=== PATIENT | female | born 1935 | race Caucasian/White ===

== ENCOUNTER 2017-06-25 04:59 | Inpatient (IN) | payer OTHER, BC ==
[2017-06-22 12:45] VITALS: BMI 32.0
--- NOTE | 2017-06-22 13:17 | PAT Medication Instructions ---
Service Date Jun 22, 2017. Current Home Medication List Albuterol Sulfate (Proventil Hfa), 1 PUFF INH QID PRN for Shortness of Breath Aspirin (Aspirin Ec), 81 MG PO QAM Carvedilol (Coreg), 3.125 MG PO BID Esomeprazole Magnesium (Nexium), 40 MG PO QAM Ferrous Sulfate (Kp Ferrous Sulfate), 1 TAB PO BID PRN for PRN Fluticasone Prop/Salmeterol (Advair Diskus 250/50 60 Dose), 1 PUFF INH BID Furosemide (Lasix), 40 MG PO QAM Isosorbide Mononitrate (Isosorbide Mononitrate ER), 30 MG PEG QAM Levothyroxine Sodium (Levothyroxine Sodium), 1 TAB PO QAM Montelukast Sodium (Singulair), 10 MG PO QAM Nitroglycerin (Nitrostat), 0.4 MG UT PRN Omeprazole (Prilosec), 20 MG PO QAM Potassium Ext Rel (Klor-Con), 20 MEQ PO QAM Simvastatin (Zocor), 10 MG PO QPM Medication Instructions For Your Scheduled Surgery - Continue as directed: Nitroglycerin (Nitrostat), 0.4 MG UT PRN - Hold the following medications the morning of surgery: Furosemide (Lasix), 40 MG PO QAM Potassium Ext Rel (Klor-Con), 20 MEQ PO QAM Ferrous Sulfate (Kp Ferrous Sulfate), 1 TAB PO BID PRN for PRN - Take the following medications the morning of surgery with a sip of water: Albuterol Sulfate (Proventil Hfa), 1 PUFF INH QID PRN for Shortness of Breath ( Bring with you to the hospital the morning of the surgery) Levothyroxine Sodium (Levothyroxine Sodium), 1 TAB PO QAM Montelukast Sodium (Singulair), 10 MG PO QAM Omeprazole (Prilosec), 20 MG PO QAM Isosorbide Mononitrate (Isosorbide Mononitrate ER), 30 MG PEG QAM Carvedilol (Coreg), 3.125 MG PO BID Aspirin (Aspirin Ec), 81 MG PO QAM Fluticasone Prop/Salmeterol (Advair Diskus 250/50 60 Dose), 1 PUFF INH BID Esomeprazole Magnesium (Nexium), 40 MG PO QAM - Take the following medications as scheduled the night before surgery: Simvastatin (Zocor), 10 MG PO QPM Carvedilol (Coreg), 3.125 MG PO BID Fluticasone Prop/Salmeterol (Advair Diskus 250/50 60 Dose), 1 PUFF INH BID If you have any questions please call us at [phone] or [phone] or [phone]
--- NOTE | 2017-06-22 14:10 | DIAGNOSTIC IMAGING REPORT ---
CHEST 2 VIEWS ROUTINE CLINICAL HISTORY: Preoperative chest COMPARISON STUDY: 02/09/2014 FINDINGS: The cardiac and sternal contours remain stable. There is no focal pulmonary consolidation. There is no failure. There are no pleural effusions. There are postsurgical changes of a lumbar spinal fusion.[ IMPRESSION: No active disease in the chest. Electronically signed by: Curt Soares M.D. 06/22/2017 2:09 PM Dictated Date/Time: 06/22/2017 2:08 PM
[2017-06-22 14:14] LABS: BASO % 0.1 %; BASO ABS # 0.01 K/uL (0-0.2); COMPLETE YES; EOS % 4.1 %; HEMATOCRIT 35.9 % (37-47); IG% 1.1 %; LYMPH % 12.3 %; LYMPH ABS # 1.15 K/uL (1.2-3.4); MEAN CELL VOLUME 78.6 fL (80-100); MEAN CORPUSCULAR HEMOGLOBIN 24.3 pg (25-34); MEAN CORPUSCULAR HGB CONC 30.9 g/dl (32-36); MEAN PLATELET VOLUME 10.2 fL (7.4-10.4); MONO % 10.5 %; NEUT % 71.9 %; PLATELET COUNT 178 K/uL (130-400); RED BLOOD COUNT 4.57 M/uL (4.2-5.4); WHITE BLOOD COUNT 9.37 K/uL (4.8-10.8)
[2017-06-22 14:15] LABS: ESTIMATED AVERAGE GLUCOSE 123 mg/dl; HA1C FLAG Normal (Normal)
[2017-06-22 14:22] LABS: URINE APPEARANCE CLEAR (CLEAR); URINE BILIRUBIN NEG (NEG); URINE COLOR YELLOW; URINE NITRITE POS (NEG); URINE PH 5.5 (4.5-7.5); URINE SPECIFIC GRAVITY 1.015 (1.000-1.030); UROBILINOGEN NEG (NEG); ZZUR CULT IF INDIC CLEAN CATCH YES
[2017-06-22 14:24] LABS: INR 1.1 (0.9-1.1); PROTHROMBIN TIME (PATIENT) 11.8 SECONDS (9.0-12.0)
[2017-06-22 14:25] LABS: MANUAL MICROSCOPIC REQUIRED? NO; REVIEW REQ? NO
[2017-06-22 14:48] LABS: BUN/CREATININE RATIO 13.8 (10-20); CALCIUM 8.9 mg/dl (8.5-10.1); CREATININE 1.4 mg/dl (0.60-1.20); POTASSIUM 3.4 mmol/L (3.5-5.1)
--- NOTE | 2017-06-24 18:15 | HISTORY & PHYSICAL EXAMINATION ---
DATE OF ADMISSION: 06/24/2017 CHIEF COMPLAINT: Chronic left hip pain. HISTORY OF PRESENT ILLNESS: This is an 82-year-old female patient of Dr. Lewis'alex complaining of chronic left hip pain, longstanding, now progressively getting worse. The patient has been diagnosed with end-stage osteoarthritis per clinical and radiographic exams. The patient has failed conservative treatment including anti-inflammatories, narcotic medications and the use of a cane. The patient has increased pain with weightbearing activities and her pain does interfere with her activities of daily living. PAST MEDICAL HISTORY: Angina, hypercholesterolemia, asthma, hypothyroidism, rheumatoid arthritis, osteoarthritis, spine problems, sciatica, and obesity. SOCIAL HISTORY: Nonsmoker, nondrinker. FAMILY HISTORY: Noncontributory. REVIEW OF SYSTEMS: The patient complains of chronic left hip pain. Otherwise, denies any shortness of breath, chest pain, nausea, vomiting or any other joint complaints. MEDICATIONS: Include: 1. Isosorbide 30 mg as needed daily. 2. Nexium 40 mg daily. 3. Klor-Con 20 mEq daily. 4. Carvedilol 3.125 mg 1 twice daily. 5. Furosemide 40 mg daily. 6. Singulair 10 mg daily. 7. Synthroid 100 mcg daily. 8. Simvastatin 10 mg at bedtime. 9. Aspirin 81 mg daily. 10. Proventil 2 puffs as needed daily. 11. Cipro twice daily for urinary tract infection. 12. Advair Diskus 250/50 one puff b.i.d. 13. Fish oil daily and calcium daily. ALLERGIES: SULFA. PHYSICAL EXAMINATION: GENERAL: Well-developed, well-nourished female who is alert and oriented x3 and pleasant. HEENT: Normocephalic, atraumatic. Extraocular motions are intact and pupils reactive to light. HEART: Regular rate and rhythm, no murmurs appreciated. LUNGS: Clear. ABDOMEN: Soft and nontender, bowel sounds are present. EXTREMITIES: Left hip reveals no real hip flexure contraction. She does have pain with passive range of motion, internal and external rotation, and log rolling. She has 4/5 strength in her hip with pain. NEUROLOGIC: Neurovascularly, she is intact in her left lower extremity. DIAGNOSES: Left hip end-stage osteoarthritis with a history of angina, hypercholesterolemia, asthma, hypothyroidism, osteoarthritis, rheumatoid arthritis, spine problems, sciatica, and obesity. PLAN: The patient was advised of her diagnoses. Indications, risks, benefits, and postop course have all been reviewed. The patient wishes to proceed with a left total hip arthroplasty. Necessary consent forms, preoperative testing and clearances will be obtained.
[~2017-06-25] VITALS: Ht 154.9 cm; Wt 80.4 kg
[2017-06-25] VITALS (11 sets, daily range): BP systolic 101–161; BP diastolic 59–79; PULSE 66–76; TEMP 36.4–36.8; O2SAT 97–100; Ht 154.9 cm; Wt 80.4 kg
[~2017-06-25 04:59] MED LIST: ADVIN25/60 INH; ALBUAER INH; ASPI81TA28 PO; CARV3.12 PO; FERR1TAB13 PO; ISOS-11 PEG; LEVO100T7 PO; LSX/40 PO; MONT1TAB3 PO; NTRGSL/4 UT; NXM/40 PO; POTA20TA16 PO; PRLSR20 PO; SIMV10TA2 PO
[2017-06-25] MEDS ORDERED: ACETAMINOPHEN 500 MG TAB PO SCH (06:00)
[2017-06-25] MEDS ORDERED: LACTATED RINGER'S 1000ML 500 ML IV ONE (06:00)
[2017-06-25] MEDS ORDERED: METOCLOPRAMIDE HCL 10 MG TAB PO SCH (06:00)
[2017-06-25] MEDS ORDERED: TRAMADOL HCL 50 MG TAB PO SCH (06:00)
[2017-06-25] MEDS ORDERED: DEXAMETHASONE 4 MG TAB PO SCH (06:00)
[2017-06-25] MEDS ORDERED: GABAPENTIN 300 MG CAP PO SCH (06:00)
[2017-06-25] MEDS ORDERED: ROPIVACAINE 5MG/ML 30 ML 150 MG, BUPIVACAINE/EPINEPHR 0.5% MPF 30 ML, KETOROLAC TROMETH... INFIL SCH ×6 (06:00)
[2017-06-25] MEDS ORDERED: LACTATED RINGER'S 1000ML 1,000 ML IV SCH (06:00)
[2017-06-25] MEDS ORDERED: LACTATED RINGER'S 1000ML IV SCH (06:00)
[2017-06-25] MEDS ORDERED: FAMOTIDINE 20 MG TAB PO SCH (06:00)
[2017-06-25] MEDS ORDERED: CIPR1TAB11 PO (06:00)
[2017-06-25] MEDS ORDERED: CEFAZOLIN 2000 MG/60 ML D5W 60 ML IV SCH (06:00)
[2017-06-25] MEDS ORDERED: MIDAZOLAM HCL 1 MG/ML 2ML VIAL ONE (06:11)
[2017-06-25] MEDS ORDERED: ONDANSETRON INJ 2 MG/ML 2 ML VIAL ONE (06:12)
[2017-06-25] MEDS ORDERED: PROPOFOL IV EMULSION 10 MG/ML 20 ML VIAL IV ONE (06:12)
[2017-06-25] MEDS ORDERED: FENTANYL CITRATE INJ 50 MCG/1 ML 2 ML VIAL ONE (06:12)
[2017-06-25] MEDS ORDERED: LIDOCAINE HCL 2% 2 ML VIAL (20MG/ML) ONE (06:12)
[2017-06-25] MEDS ORDERED: BUPIVACAINE 0.5 % 5 MG/1 ML PF 10ML VIAL ONE (06:27)
[2017-06-25] MEDS ORDERED: POVIDONE-IODINE OP SOLN 30 ML BTL ONE (06:43)
[2017-06-25] MEDS ORDERED: ORTHO JOINT ANESTHETIC ONE (06:43)
[2017-06-25] MEDS ORDERED: BACITRACIN 50000 UNIT VIAL ONE (06:43)
[2017-06-25] MEDS: TRANEXAMIC ACID INJ 1,000 MG in SODIUM CHLORIDE 0.9% 100ML 100 ML IV SCH ×2 (06:48→12:26)
--- NOTE | 2017-06-25 07:11 | History & Physical Bridge Note ---
H&P Re-Evaluation Bridge Note: I have examined the patient, reviewed the History & Physical and in the interval since the performance of the History & Physical I have noted the following changes of clinical significance: No changes noted
[2017-06-25] MEDS ORDERED: EpHEDrine SULFATE INJ 50 MG/ML AMP ONE (07:32)
[2017-06-25] MEDS ORDERED: EpHEDrine SULFATE INJ 50 MG/ML AMP IV PRN (08:15)
[2017-06-25] MEDS ORDERED: FLUMAZENIL 0.1 MG/1 ML 10 ML VIAL IV PRN (08:15)
[2017-06-25] MEDS ORDERED: ONDANSETRON INJ 2 MG/ML 2 ML VIAL IV PRN ×2 (08:15→10:00)
[2017-06-25] MEDS ORDERED: ATROPINE SULFATE 0.1 MG/ML 5ML SYR IV PRN (08:15)
[2017-06-25] MEDS ORDERED: NALOXONE HCL 0.4 MG/1 ML VIAL/CARP IV PRN (08:15)
[2017-06-25] MEDS ORDERED: MEPERIDINE HCL 25 MG/ML CARP IV PRN (08:15)
[2017-06-25] MEDS ORDERED: HYDROmorphone INJ 2 MG/ML SYR/VIAL IV PRN (08:15)
[2017-06-25] MEDS ORDERED: PHENYLEPHRINE 100MCG/ML 5ML SYR IV PRN (08:15)
[2017-06-25] MEDS ORDERED: FENTANYL CITRATE INJ 50 MCG/1 ML 2 ML VIAL IV PRN (08:15)
[2017-06-25] MEDS ORDERED: LABETALOL HCL IV 5 MG/ML 20ML IV PRN (08:15)
--- NOTE | 2017-06-25 09:56 | [facility] Post Operative Brief Note ---
Immediate Operative Summary Operative Date Jun 25, 2017. Pre-Operative Diagnosis DEGENERATIVE JOINT DISEASE LEFT HIP Post-Operative Diagnosis SAME S PREOP Procedure(s) Performed LEFT TOTAL HIP ARTHROPLASTY -UNCEMENTED Surgeon DR. Elizabeth BARRIOS Sports [employer] Internship Surgeon(s) Murray PERKINS Estimated Blood Loss 150ML Findings end stage oa hip protrusio pattern Specimens LEFT HIP BONE AND TISSUE Drains 2 hemovac Anesthesia spinal Complication(s) None Disposition Recovery Room / PACU
[2017-06-25] MEDS ORDERED: BISACODYL 10 MG SUPP PR PRN (10:00)
[2017-06-25] MEDS ORDERED: ALBUTEROL HFA 8 GM INHALER INH PRN (10:00)
[2017-06-25] MEDS ORDERED: ALUMINUM/MAGNESIUM/SIMETH (MAALOX MAX) 30 ML UDC PO PRN (10:00)
[2017-06-25] MEDS ORDERED: NITROGLYCERIN 0.4 MG SL PER TAB CHARGE UT SCH (10:00)
[2017-06-25] MEDS ORDERED: MoRPHine SULFATE 2 MG/ML CARP IV PRN (10:00)
[2017-06-25] MEDS ORDERED: TRAMADOL HCL 50 MG TAB PO PRN (10:00)
[2017-06-25] MEDS ORDERED: SOD PHOSPHATE/SOD BIPHOSPHATE ENEMA 132 ML BTL PR PRN (10:00)
[2017-06-25] MEDS ORDERED: ZOLPIDEM TARTRATE 5 MG TAB PO PRN (10:00)
[2017-06-25] MEDS ORDERED: MAGNESIUM HYDROXIDE SUSP 30 ML UDC PO PRN (10:00)
--- NOTE | 2017-06-25 10:17 | [facility] Operative Report ---
Operative Report Operative Date Jun 25, 2017. Pre-Operative Diagnosis DEGENERATIVE JOINT DISEASE LEFT HIP Post-Operative Diagnosis same Procedure(s) Performed Left total hip arthroplasty Surgeon DR. 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 Patient was placed supine on the operating table. Exam of the involved extremity demonstrated . Patient was placed on a sacral pad the involved leg was placed on a foot pump to flex knee 90 and hip 60. A Pinto-type approach was performed to the left hip. A longitudinal lateral incision was made over the hip. The skin was incised sharply. The fat was divided down to the fascia. Subcutaneous bleeders are cauterized. The patient had a very deep layer of fat over 10 inches. Trochanter bursa was resected. The gluteus medius was tendinopathic and thinned and had some undersurface tearing but no complete tear . A split was made in the gluteus medius muscle between the anterior 40% and posterior 60%. The minimus was divided longitudinally reflected off the underlying capsule. The capsule was incised down to the hip joint. Intra-articular findings demonstrated an inferior medial osteophyte a protrusio-type osteophytic pattern grade 4.. An incision was made through the gluteus medius leaving a cuff of tendon for repair on the greater trochanter. The vastus lateralis was split longitudinally for about 3 cm. A muscular capsular flap was elevated off the hip. The hip was dislocated with use of bone out with flexion and external rotation. The femoral neck cut was made approximately 15 mm proximal to the lesser trochanter in neutral anteversion. Head and neck fragment were removed. The femoral head demonstrated grade 4 wear on the medial central area. A self-retaining superior tractor was impacted into the ilium a blunt Rachel retractor was placed anteriorly a double angled inferior retractor was placed on the issue. The acetabulum demonstrated grade 4 medial wear with protrusio wear.. The acetabular labrum was resected all osteophytes were resected soft tissue mass of her fossa was resected. An intracapsular release was performed. Some the capsule was resected for exposure. The first reamer was used and we did not have to medialize any reaming due to the protrusio pattern and then sequential reamers for the acetabulum were used in 2 mm increments up to a size 48 mm cup. I used the Christen total hip arthroplasty system using a PSL type cup. Trial reduction demonstrated a 48 millimeter cup was the appropriate size and fit. The placement of the final implant was performed after irrigating the acetabulum with antibiotic solution with pulsatile lavage. The implant was the Christen Trident PSL 48 mm D cup. The position of the cup was approximately 15 anteversion 45 abduction. Good fixation was performed. 2 screws were placed in the posterior superior quadrant for further fixation through the cup. The acetabular liner was impacted into position. The Trident x-ray polyethylene 36 mm D 0 acetabular liner was used. Retractors removed and attention was taken to the femur. The femur was exposed with flexion external rotation. Canal reamer was used followed by sequential broaches up to a size. This had a good fit and fill. Trial reduction was performed on 127 neck angle. A +2.5 neck length gave stable range of motion through full flexion flexion adduction and internal rotation and extension and external rotation. I had to use 127 neck angle and the +2.5 neck length for stability purposes as this patient had ligamentous laxity of the hip and there was some concern for instability. We may have some increased leg length for stability purposes. The trials removed and after irrigation again and the final implant was impacted which was the Accolade 2 size 11/12/2026 degree neck angle . The Biolox ceramic head size 36 mm +2.5 was used. After final implants replaced the reduction was noted to be stable. We use Orthomix anesthetic cocktail injected into the hip capsule and muscle and fascia and subcutaneous tissues. 2 drains were placed deep. These were brought out laterally and connected to Hemovac. The minimus was closed with interrupted [id number] #1 Vicryl sutures. The medius was closed with transosseous #5 FiberWire sutures using Zeus Brain stitch technique. Lateral row soft tissue repair was performed with figure of 8 #2 FiberWire sutures. The medius split was closed with interrupted [id number] #1 Vicryl sutures. The vastus lateralis was closed with interrupted figure minimal Vicryl sutures. The fascia james was closed with interrupted figure of 8 number Vicryl sutures. The fat was closed with large #2 Vicryl to close the space and superficial [id number] #2-0 Vicryl sutures. Skin was closed with gena sterile dressings were applied. A Silverlon dressing was applied The patient tolerated procedure well.[Murray PERKINS,] My physician library clerical assistant assisted me in the procedure with patient positioning And draping soft tissue retraction instrument management suture management and assisted in the outer layer closure and will participate in the postoperative care the patient thank you. I attest to the content of the Intraoperative Record and any orders documented therein. Any exceptions are noted below.
--- NOTE | 2017-06-25 10:37 | Anesthesiology Progress Note ---
Anesthesia Post Op Note Date & Time Jun 25, 2017 at 10:37 Vital Signs Pain Intensity: 0 Vital Signs Past 12 Hours Date Time Temp Pulse Resp B/P (MAP) Pulse Ox O2 Delivery O2 Flow Rate FiO2 06/25/17 10:20 36.4 69 16 131/62 100 Nasal Cannula 2 06/25/17 10:10 67 17 135/53 100 Nasal Cannula 2 06/25/17 10:00 63 13 148/65 100 Oxymask 10 06/25/17 09:53 36.8 65 20 135/67 100 Oxymask 10 06/25/17 05:40 36.8 71 18 161/72 98 Room Air Notes Mental Status: alert / awake / arousable, participated in evaluation Pt Amnestic to Procedure: Yes Nausea / Vomiting: adequately controlled Pain: adequately controlled Airway Patency, RR, SpO2: stable & adequate BP & HR: stable & adequate Hydration State: stable & adequate Anesthetic Complications: no major complications apparent
--- NOTE | 2017-06-25 10:58 | DIAGNOSTIC IMAGING REPORT ---
AP PELVIS AND LEFT HIP 2 VIEWS CLINICAL HISTORY: Degenerative arthritis left hip. Hip arthroplasty. COMPARISON STUDY: No previous studies for comparison. FINDINGS: There are bilateral total hip arthroplasties. On the left there is air within the soft tissues consistent with recent surgery. There are overlying skin gena and surgical drains. There are no acute fractures. There is no dislocation. Postsurgical changes are also present within the lower lumbar spine. IMPRESSION: Postsurgical changes of a recent total left hip arthroplasty. Electronically signed by: Curt Soares M.D. 06/25/2017 10:57 AM Dictated Date/Time: 06/25/2017 10:55 AM
[2017-06-25] MEDS ORDERED: INFLUENZA VACCINE HIGH DOSE 65+ 0.5 ML SYR IM. ONE (12:00)
[2017-06-25] MEDS ORDERED: INFLUENZA ADMINISTRATION CHARGE ONE (12:00)
[2017-06-25] MEDS ORDERED: FERROUS SULFATE 325 MG TAB PO PRN (12:30)
[2017-06-25] MEDS: ACETAMINOPHEN 500 MG TAB PO SCH ×2 (12:52→21:31)
[2017-06-25] MEDS: D5W AND 1/2NSS + 20MEQ KCL 1,000 ML IV SCH ×2 (12:52→21:32)
[2017-06-25] MEDS ORDERED: MoRPHine SULFATE 4 MG/ML 1 ML CARP\\VIAL IV PRN (13:15)
--- NOTE | 2017-06-25 14:07 | Medical Consult ---
Consultation Date of Consultation: Jun 25, 2017. Attending Physician: Robbi Lewis M.D. Reason for Consultation: Medical management History of Present Illness Patient is an 82 y/o female, with PMHx of angina, hypercholesterolemia, asthma, hypothyroidism, rheumatoid arthritis, osteoarthritis, spine problems, sciatica, obesity, and GERD, s/p L NIDHI by Dr. Lewis on 06/25. Patient resting in bed, easily wakens. Pain is well controlled. Ate postop, tolerated it well. +flatus postop, no BM. Patient denies any fever, chills, sweats, lightheadedness, dizziness, vision changes, CP, palpitations, edema, SOB, wheezing, cough, abdominal pain, nausea, vomiting, diarrhea, urinary symptoms, melena, numbness/ tingling, weakness, anxiety/depression, active bleeding, or new skin discoloration/changes. Past Medical/Surgical History PAST MEDICAL HISTORY: Angina hypercholesterolemia asthma hypothyroidism rheumatoid arthritis osteoarthritis spine problems sciatica obesity PAST SURGICAL HISTORY: cholecystectomy hysterectomy bilateral knee replacement Family History Mother- PE Social History Smoking Status: Never Smoker Alcohol Use: none Drug Use: none Marital Status: Housing Status: lives with family Occupation Status: retired Allergies Coded Allergies: Iodinated Diagnostic Agents (Verified Allergy, Severe, PT STATES, ALMOST FROM HEART CONTRAST DYE, 06/25/17) [place] (Verified Allergy, Severe, HIVES, 06/25/17) Sulfa Antibiotics (Verified Allergy, Unknown, ITCHY RED RASH, ELEVATED TEM -, 06/25/17) Home Medications Reported Home Medications Medications Dose Route/Sig Max Daily Dose Days Date Category Cipro (Ciprofloxacin) 250 Mg Tab 2 Tab PO DIRECTED 5 06/25/17 Reported Kp Ferrous Sulfate (Ferrous Sulfate) 325 Mg Tab 1 Tab PO BID PRN 30 06/22/17 Reported Prilosec (Omeprazole) 20 Mg Capcr 20 Mg PO QAM 06/22/17 Reported Nitrostat (Nitroglycerin) 0.4 Mg Tab 0.4 Mg UT PRN 06/22/17 Reported Proventil Hfa (Albuterol Sulfate) 108 Mcg/Act Aer 1 Puff INH QID PRN 06/22/17 Reported Aspirin Ec (Aspirin) 81 Mg Tab 81 Mg PO QAM 06/22/17 Reported Levothyroxine Sodium 100 Mcg Tab 1 Tab PO QAM 06/22/17 Reported Singulair (Montelukast Sodium) 10 Mg Tab 10 Mg PO QAM 06/22/17 Reported Klor-Con (Potassium Chloride) 20 Meq Tabcr 20 Meq PO QAM 06/22/17 Reported Isosorbide Mononitrate ER (Isosorbide Mononitrate) 30 Mg Tabcr 30 Mg PEG QAM 06/22/17 Reported Lasix (Furosemide) 40 Mg Tab 40 Mg PO QAM 03/02/12 Reported Coreg (Carvedilol) 3.125 Mg Tab 3.125 Mg PO BID 03/02/12 Reported Zocor (Simvastatin) 10 Mg Tab 10 Mg PO QPM 05/12/08 Reported Nexium (Esomeprazole Magnesium) 40 Mg Capcr 40 Mg PO QAM 05/12/08 Reported Current Inpatient Medications Current Inpatient Medications Medications (Trade) Dose Ordered Sig/Awilda Route Start Time Stop Time Status Last Admin Dose Admin Lactated Ringer's 1,000 ml @ 60 mls/hr [id number] IV 06/25/17 06:00 06/25/17 22:39 Cefazolin Sodium 60 ml @ 100 mls/hr PREOP IV 06/25/17 06:00 06/25/17 18:00 06/25/17 07:17 100 MLS/HR Acetaminophen (Tylenol Tab) 1,000 mg PREOP PO 06/25/17 06:00 06/25/17 18:00 06/25/17 06:05 1,000 MG Dexamethasone (Decadron Tab) 8 mg PREOP PO 06/25/17 06:00 06/25/17 18:00 06/25/17 06:04 8 MG Famotidine (Pepcid Tab) 20 mg PREOP PO 06/25/17 06:00 06/25/17 18:00 06/25/17 06:04 20 MG Gabapentin (Neurontin Cap) 300 mg PREOP PO 06/25/17 06:00 06/25/17 18:00 06/25/17 06:03 300 MG Metoclopramide HCl (Reglan Tab) 10 mg PREOP PO 06/25/17 06:00 06/25/17 18:00 06/25/17 06:03 10 MG Tramadol HCl (Ultram Tab) 50 mg PREOP PO 06/25/17 06:00 06/25/17 18:00 06/25/17 06:04 50 MG Lactated Ringer's 1,000 ml @ 15 mls/hr Q24H IV 06/25/17 06:00 06/26/17 05:59 Albuterol (Ventolin Hfa Inhaler) 1 puffs QID PRN INH 06/25/17 10:00 07/25/17 09:59 Carvedilol (Coreg Tab) 3.125 mg BID PO 06/25/17 21:00 07/25/17 20:59 Furosemide (Lasix Tab) 40 mg QAM PO 06/26/17 09:00 07/26/17 08:59 Isosorbide Mononitrate (Imdur Ext Rel Tab) 30 mg QAM PO 06/26/17 09:00 07/26/17 08:59 Levothyroxine Sodium (Synthroid Tab) 100 mcg DAILYBB PO 06/26/17 06:00 07/26/17 05:59 Montelukast Sodium (Singulair Tab) 10 mg QAM PO 06/26/17 09:00 07/26/17 08:59 Nitroglycerin (Nitrostat Tab) 0.4 mg PRN UT 06/25/17 10:00 07/25/17 09:59 Potassium Chloride (Klor-Con Tab) 20 meq QAM PO 06/26/17 09:00 07/26/17 08:59 Simvastatin (Zocor Tab) 10 mg QPM PO 06/25/17 21:00 07/25/17 20:59 Ferrous Sulfate (Feosol Tab) 325 mg BID PRN PO 06/25/17 12:30 07/25/17 12:29 Potassium Chloride/Dextrose/ Sod Cl 1,000 ml @ 100 mls/hr Q10H IV 06/25/17 12:45 06/26/17 12:44 06/25/17 12:52 100 MLS/HR Oxycodone HCl (Roxicodone Immediate Rel Tab) 1 TABLET FOR PAIN RATING... Q4H PRN PO 06/25/17 10:00 07/09/17 09:59 Morphine Sulfate (MoRPHine SULFATE INJ) 2 mg Q2H PRN IV 06/25/17 10:00 07/09/17 09:59 Acetaminophen (Tylenol Tab) 1,000 mg Q8 PO 06/25/17 14:00 07/25/17 13:59 06/25/17 12:52 1,000 MG Magnesium Hydroxide (Milk Of Magnesia Susp) 30 ml Q6H PRN PO 06/25/17 10:00 07/25/17 09:59 Bisacodyl (Dulcolax Supp) 10 mg DAILY PRN [place] 06/25/17 10:00 07/25/17 09:59 Sodium Biphosphate/ Sodium Phosphate (Fleet Enema) 132 ml DAILY PRN [place] 06/25/17 10:00 07/25/17 09:59 Docusate Sodium (coLACE CAP) 100 mg BID PO 06/25/17 21:00 07/25/17 20:59 Diphenhydramine HCl (Benadryl Cap) 25 mg Q8H PRN PO 06/25/17 10:00 07/25/17 09:59 Al Hydrox/Mg Hydrox/Simethicone (Maalox Max Susp) 15 ml Q4H PRN PO 06/25/17 10:00 07/25/17 09:59 Zolpidem Tartrate (Ambien Tab) 5 mg HSZ PRN PO 06/25/17 10:00 07/25/17 09:59 Multivitamins (Multivitamin Tab) 1 tab QAM PO 06/26/17 09:00 07/26/17 08:59 Ondansetron HCl (Zofran Inj) 4 mg Q6H PRN IV 06/25/17 10:00 07/25/17 09:59 Pantoprazole Sodium (Protonix Tab) 40 mg QAM PO 06/26/17 09:00 07/26/17 08:59 Tramadol HCl (Ultram Tab) 1 TABLET FOR PAIN RATING... Q4H PRN PO 06/25/17 10:00 07/25/17 09:59 Cefazolin Sodium 2000 mg/Dextrose 60 ml @ 100 mls/hr Q8H IV 06/25/17 16:00 06/26/17 00:35 Aspirin (Ecotrin Tab) 81 mg BID PO 06/25/17 21:00 07/25/17 20:59 Morphine Sulfate (MoRPHine SULFATE INJ) 4 mg Q2H PRN IV 06/25/17 13:15 07/09/17 13:14 Physical Exam Date Time Temp Pulse Resp B/P (MAP) Pulse Ox O2 Delivery O2 Flow Rate FiO2 06/25/17 12:42 69 16 149/72 (97) 100 Nasal Cannula 2.0 06/25/17 11:40 68 16 114/71 (85) 100 Nasal Cannula 2.0 06/25/17 11:15 68 16 140/59 (86) 100 Nasal Cannula 2.0 06/25/17 10:40 100 Nasal Cannula 2.0 06/25/17 10:40 100 Nasal Cannula 2.0 06/25/17 10:37 36.4 68 14 131/77 (95) 100 Nasal Cannula 2.0 06/25/17 10:20 36.4 69 16 131/62 100 Nasal Cannula 2 06/25/17 10:10 67 17 135/53 100 Nasal Cannula 2 06/25/17 10:00 63 13 148/65 100 Oxymask 10 06/25/17 09:53 36.8 65 20 135/67 100 Oxymask 10 06/25/17 05:40 36.8 71 18 161/72 98 Room Air General Appearance: no apparent distress, + pertinent finding (O2 NC ) Head: normocephalic, atraumatic Eyes: PERRL ENT: hearing grossly normal Neck: supple Respiratory/Chest: lungs clear, no respiratory distress, no accessory muscle use Cardiovascular: regular rate, rhythm, + systolic murmur Abdomen/GI: normal bowel sounds, non tender, soft Extremities/Musculoskelatal: no calf tenderness, no pedal edema, + pertinent finding (TEDs/SCDs on ) Neurologic/Psych: alert, normal mood/affect, oriented x 3 Skin: normal color, warm/dry, no rash Assessment & Plan Patient is an 82 y/o female, with PMHx of angina, hypercholesterolemia, asthma, hypothyroidism, rheumatoid arthritis, osteoarthritis, spine problems, sciatica, obesity, and GERD, s/p L NIDHI by Dr. Lewis on 06/25. s/p L NIDHI by Dr. Lewis on 06/25: - Pain management, PT/OT, and DVT prophylaxis as per primary team - Follow postop CBC and PRP - Encourage incentive spirometer UTI- pansensitive E.coli: - Being treated postop w/ IV Cefazolin x2 doses- will begin Keflex 500 mg BID tomorrow HTN: - Continue Coreg 3.125 mg BID w/ hold parameters, KCL supplement - Hold Lasix 40 mg daily pending postop labs/volume assessment tomorrow AM Angina: Continue Imdur 30 mg QAM Asthma: Continue home inhalers Hypercholesterolemia: Zocor 10 mg HS Hypothyroidism: Synthroid 100 mcg daily GI prophylaxis: Protonix 40 mg daily DVT prophylaxis: ASA 81 mg BID Code Status: LEVEL I, FULL Dispo: As per primary team Thank you for this consultation. We will continue to follow. .Attending Addendum: I have physically seen this patient, have directed the physician assistants medical activities, and agree with the H&P as noted above with the following exceptions as noted. Assessment and Plan: Status post left total hip arthroplasty on 06/[address] Goldsmith-- Seen postoperatively is medically stable. Escherichia coli UTI-- Cefazolin IV to Keflex orally as noted. CAD/hypertension--continue Coreg with hold parameters and him before. Lasix. Asthma-- Continue Singulair and Proventil HFA Duonebs every 4 hours when necessary. GERD-- Nexium changed to pantoprazole Hypothyroidism-- Continue Synthroid 100 g daily. Hyperlipidemia-- continue Zocor 10 mg at bedtime
[2017-06-25] MEDS: CEFAZOLIN IV 2,000 MG in DEXTROSE 5% 50ML 50 ML IV SCH ×2 (15:32→23:42)
[2017-06-25] MEDS: OXYCODONE HCL IR 5 MG TAB (IMMEDIATE RELEASE) PO PRN (19:46)
[2017-06-25] MEDS: DOCUSATE SODIUM 100 MG CAP PO SCH (21:31)
[2017-06-25] MEDS: SIMVASTATIN 10 MG TAB PO SCH (21:31)
[2017-06-25] MEDS: ASPIRIN 81 MG ECTAB PO SCH (21:31)
[2017-06-25] MEDS: CARVEDILOL 3.125 MG TAB PO SCH (21:31)
[2017-06-26 03:16] VITALS: BP 137/69; PULSE 77; TEMP 36.5; O2SAT 97
[2017-06-26] MEDS: OXYCODONE HCL IR 5 MG TAB (IMMEDIATE RELEASE) PO PRN ×3 (05:33→18:59)
[2017-06-26] MEDS: LEVOTHYROXINE 100 MCG TAB PO SCH (05:35)
[2017-06-26] MEDS: ACETAMINOPHEN 500 MG TAB PO SCH ×3 (05:36→21:27)
[2017-06-26 05:40] LABS: HEMATOCRIT 27.5 % (37-47); IG% 0.4 %; LYMPH % 2.9 %; LYMPH ABS # 0.41 K/uL (1.2-3.4); MEAN CELL VOLUME 77.2 fL (80-100); MEAN CORPUSCULAR HEMOGLOBIN 23.9 pg (25-34); MEAN CORPUSCULAR HGB CONC 30.9 g/dl (32-36); MEAN PLATELET VOLUME 10.1 fL (7.4-10.4); MONO % 7.4 %; NEUT % 89.3 %; PLATELET COUNT 112 K/uL (130-400); RED BLOOD COUNT 3.56 M/uL (4.2-5.4); WHITE BLOOD COUNT 14.21 K/uL (4.8-10.8)
[2017-06-26 06:07] LABS: COMPLETE YES; HYPOCHROMIA PRESENT
[2017-06-26 06:19] LABS: BUN/CREATININE RATIO 9.6 (10-20); CALCIUM 7.8 mg/dl (8.5-10.1); CREATININE 1.2 mg/dl (0.60-1.20); POTASSIUM 3.7 mmol/L (3.5-5.1)
[2017-06-26 06:58] VITALS: BP 137/71; PULSE 71; TEMP 36.6; O2SAT 96
[2017-06-26] MEDS: D5W AND 1/2NSS + 20MEQ KCL 1,000 ML IV SCH (07:42)
--- NOTE | 2017-06-26 07:51 | Anesthesiology Progress Note ---
Anesthesia Post Op Note Date & Time Jun 26, 2017 at 07:50 Vital Signs Pain Intensity: 8.0 Vital Signs Past 12 Hours Date Time Temp Pulse Resp B/P (MAP) Pulse Ox O2 Delivery O2 Flow Rate FiO2 06/26/17 06:58 36.6 71 16 137/71 (93) 96 Room Air 06/26/17 03:16 36.5 77 16 137/69 (91) 97 Room Air 06/25/17 23:14 36.7 74 16 146/79 (101) 97 Room Air 06/25/17 21:30 76 130/75 (93) Notes Mental Status: alert / awake / arousable, participated in evaluation Pt Amnestic to Procedure: Yes Nausea / Vomiting: adequately controlled Pain: adequately controlled Airway Patency, RR, SpO2: stable & adequate BP & HR: stable & adequate Hydration State: stable & adequate Neuraxial Anesthesia: sensory block resolved Anesthetic Complications: no major complications apparent
--- NOTE | 2017-06-26 08:23 | Orthopedic Progress Note ---
Orthopedic Progress Note Date of Service Jun 26, 2017. Subjective Post OP Day: 1 Reports: feeling well, pain controlled w PO medications, Denies: complaints, chest pain, SOB, nausea / vomiting, light headedness, calf pain Additional Notes: Hgb 8.5 Objective calves soft nontender, N/V intact, capillary refill less than 2 sec., dressing C /D/I, A&O x3, toes mobile Silverlon in tact. Date Time Temp Pulse Resp B/P (MAP) Pulse Ox O2 Delivery O2 Flow Rate FiO2 06/26/17 07:45 Room Air 06/26/17 06:58 36.6 71 16 137/71 (93) 96 Room Air 06/26/17 03:16 36.5 77 16 137/69 (91) 97 Room Air 06/25/17 23:14 36.7 74 16 146/79 (101) 97 Room Air 06/25/17 21:30 76 130/75 (93) 06/25/17 19:39 36.6 71 18 105/65 (78) 98 Room Air 06/25/17 19:15 Room Air 06/25/17 15:47 36.6 69 18 116/69 (85) 99 Room Air 06/25/17 13:42 66 16 101/59 (73) 100 Nasal Cannula 2.0 06/25/17 12:42 69 16 149/72 (97) 100 Nasal Cannula 2.0 06/25/17 11:40 68 16 114/71 (85) 100 Nasal Cannula 2.0 06/25/17 11:15 68 16 140/59 (86) 100 Nasal Cannula 2.0 06/25/17 10:40 100 Nasal Cannula 2.0 06/25/17 10:40 100 Nasal Cannula 2.0 06/25/17 10:37 36.4 68 14 131/77 (95) 100 Nasal Cannula 2.0 06/25/17 10:20 36.4 69 16 131/62 100 Nasal Cannula 2 06/25/17 10:10 67 17 135/53 100 Nasal Cannula 2 06/25/17 10:00 63 13 148/65 100 Oxymask 10 06/25/17 09:53 36.8 65 20 135/67 100 Oxymask 10 Laboratory Results 24 Hours: Test 06/26/17 05:16 White Blood Count 14.21 K/uL Red Blood Count 3.56 M/uL Hemoglobin 8.5 g/dL Hematocrit 27.5 % Mean Corpuscular Volume 77.2 fL Mean Corpuscular Hemoglobin 23.9 pg Mean Corpuscular Hemoglobin Concent 30.9 g/dl Platelet Count 112 K/uL Mean Platelet Volume 10.1 fL Neutrophils (%) (Auto) 89.3 % Lymphocytes (%) (Auto) 2.9 % Monocytes (%) (Auto) 7.4 % Eosinophils (%) (Auto) 0.0 % Basophils (%) (Auto) 0.0 % Neutrophils # (Auto) 12.69 K/uL Lymphocytes # (Auto) 0.41 K/uL Monocytes # (Auto) 1.05 K/uL Eosinophils # (Auto) 0.00 K/uL Basophils # (Auto) 0.00 K/uL Assessment & Plan Assessment: POD #1, Left NIDHI Plan: PT/ OT DVT proph- ASA D/C planning- Would like [facility] As per medicine CHECK H/H IN AM SAT Inhouse Planning Pain Management: Ultram, Morphine, PO Tylenol, Oxy IR DVT Prophylaxis: TEDs, SCDs, ASA Discharge Planning Discharge Planning: intermediate facility, [facility], [facility] Pain Management: PO Tylenol, Oxy IR DVT Prophylaxis: ASA Therapy: Physical Therapy, Occupational Therapy
[2017-06-26] MEDS: ISOSORBIDE MONONITRATE 30 MG TABCR PO SCH (08:28)
[2017-06-26] MEDS: ASPIRIN 81 MG ECTAB PO SCH ×2 (08:28→21:21)
[2017-06-26] MEDS: MULTIVITAMIN TAB PO SCH (08:28)
[2017-06-26] MEDS: PANTOprazole SOD 40 MG TAB PO SCH (08:29)
[2017-06-26] MEDS: CEPHALEXIN MONOHYDRATE 500 MG CAP PO SCH ×2 (08:29→21:21)
[2017-06-26] MEDS: POTASSIUM CHLORIDE 20 MEQ TABCR PO SCH (08:29)
[2017-06-26] MEDS: DOCUSATE SODIUM 100 MG CAP PO SCH ×2 (08:29→21:21)
[2017-06-26] MEDS: MONTELUKAST SOD 10 MG TAB PO SCH (08:29)
[2017-06-26] MEDS: CARVEDILOL 3.125 MG TAB PO SCH ×2 (08:29→21:25)
--- NOTE | 2017-06-26 08:47 | Clinical Documentation Query ---
CLINICAL DOCUMENTATION QUERY 82 y/o female, with PMHx of angina, hypercholesterolemia, asthma, hypothyroidism, rheumatoid arthritis, osteoarthritis, spine problems, sciatica, obesity, and GERD, s/p L NIDHI by Dr. Lewis on 06/25. In your clinical opinion is this patient being managed for: ( x ) Acute blood loss anemia s/p surgical intervention ( ) Not Agree ( ) Other explanation of clinical findings (Please Explain) ( ) Unable to determine (Please Define) ( ) Need to Discuss The medical record reflects the following clinical findings, treatment, and risk factors. Clinical Indicators: Hgb 11.1 trending down to 8.5, EBL 150 ml, hemovac 270 ml Treatment: IV hydration, type and screen, serial CBC's Risk Factors: Age, s/p surgical intervention Please clarify and document your clinical opinion in the progress notes and discharge summary. Terms such as "probable", "suspected", "likely", "questionable", "possible", or "still to be ruled out" are acceptable. IF IN AGREEMENT, YOU MUST DOCUMENT ABOVE DIAGNOSTIC STATEMENT IN DAILY PROGRESS NOTES AND DISCHARGE SUMMARY. This document is not part of the patient's record. Thank You, Ladonna Chou RN [phone]
[2017-06-26] MEDS ORDERED: FUROSEMIDE 40 MG TAB PO SCH (09:00)
[2017-06-26] MEDS ORDERED: NON-FORMULARY MEDICATION (Omeprazole (Prilosec) 20 MG) PO SCH (09:00)
[2017-06-26] MEDS ORDERED: NON-FORMULARY MEDICATION (Esomeprazole Magnesium (Nexium) 40 MG) PO SCH (09:00)
--- NOTE | 2017-06-26 10:45 | Progress Note ---
Subjective Date of Service: Jun 26, 2017. Subjective Pt evaluation today including: conversation w/ patient, conversation w/ family , physical exam, chart review, lab review, review of studies, conversation w/ project management consultant, review of inpatient medication list Up and walk with walker, no dizziness, denied dysuria urgency and frequency, deny fever and chill Review of Systems Constitutional: No fever, No chills, No sweats, No weight loss, No weakness, No fatigue, No problem reported Eyes: No worsening of vision, No eye pain, No redness, No discharge, No diplopia ENT: No hearing loss, No unusual epistaxis, No nasal symptoms, No sore throat, No tinnitus, No dental problems, No trouble swallowing Respiratory: No cough, No sputum, No wheezing, No shortness of breath, No dyspnea on exertion, No dyspnea at rest, No hemoptysis Cardiac: No chest pain, No orthopnea, No PND, No edema, No claudication, No palpitations Abdomen: No pain, No nausea, No vomiting, No diarrhea, No constipation Musculoskeletal: No joint pain, No muscle pain, No swelling, No calf pain Female : No dysuria, No urinary frequency, No hematuria, No incontinence, No abnormal vaginal bleeding, No vaginal discharge Neurologic: No memory loss, No paralysis, No weakness, No numbness/tingling, No vertigo, No balance problems Psychiatric: No depression symptoms, No anhedonism, No anxiety, No insomnia, No substance abuse Heme: No abnormal bleeding/bruising, No clotting problems, No swollen lymph nodes, No night sweats Endo: No fatigue, No excessive thirst, No excessive urination Skin: No rash, No itch, No new/changing skin lesions, No color change, No bleeding Objective Vital Signs Date Time Temp Pulse Resp B/P (MAP) Pulse Ox O2 Delivery O2 Flow Rate FiO2 06/26/17 07:45 Room Air 06/26/17 06:58 36.6 71 16 137/71 (93) 96 Room Air 06/26/17 03:16 36.5 77 16 137/69 (91) 97 Room Air 06/25/17 23:14 36.7 74 16 146/79 (101) 97 Room Air 06/25/17 21:30 76 130/75 (93) 06/25/17 19:39 36.6 71 18 105/65 (78) 98 Room Air 06/25/17 19:15 Room Air 06/25/17 15:47 36.6 69 18 116/69 (85) 99 Room Air 06/25/17 13:42 66 16 101/59 (73) 100 Nasal Cannula 2.0 06/25/17 12:42 69 16 149/72 (97) 100 Nasal Cannula 2.0 06/25/17 11:40 68 16 114/71 (85) 100 Nasal Cannula 2.0 06/25/17 11:15 68 16 140/59 (86) 100 Nasal Cannula 2.0 Physical Exam General Appearance: WD/WN, no apparent distress, + obese Eyes: normal inspection, PERRL, EOMI, sclerae normal ENT: normal ENT inspection, hearing grossly normal, pharynx normal Neck: supple, no adenopathy, thyroid normal, no JVD, no carotid bruits, trachea midline Respiratory/Chest: chest non-tender, lungs clear, normal breath sounds, no respiratory distress, no accessory muscle use Cardiovascular: regular rate, rhythm, no edema, no gallop, no JVD, no murmur Abdomen: normal bowel sounds, non tender, soft, no organomegaly, no pulsatile mass Extremities: non-tender, normal inspection, no pedal edema, no calf tenderness , normal capillary refill, pelvis stable, + pertinent finding (left hip in dress , LAUREN drainage in place, some bloody drainage) 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, no motor/sensory deficits, alert, normal mood/affect, oriented x 3 Skin: normal color, warm/dry, no rash Lymphatic: no adenopathy Laboratory Results Last 24 Hours Test 06/26/17 05:16 White Blood Count 14.21 K/uL Red Blood Count 3.56 M/uL Hemoglobin 8.5 g/dL Hematocrit 27.5 % Mean Corpuscular Volume 77.2 fL Mean Corpuscular Hemoglobin 23.9 pg Mean Corpuscular Hemoglobin Concent 30.9 g/dl Platelet Count 112 K/uL Mean Platelet Volume 10.1 fL Neutrophils (%) (Auto) 89.3 % Lymphocytes (%) (Auto) 2.9 % Monocytes (%) (Auto) 7.4 % Eosinophils (%) (Auto) 0.0 % Basophils (%) (Auto) 0.0 % Neutrophils # (Auto) 12.69 K/uL Lymphocytes # (Auto) 0.41 K/uL Monocytes # (Auto) 1.05 K/uL Eosinophils # (Auto) 0.00 K/uL Basophils # (Auto) 0.00 K/uL RDW Standard Deviation 44.4 fL RDW Coefficient of Variation 15.7 % Immature Granulocyte % (Auto) 0.4 % Immature Granulocyte # (Auto) 0.06 K/uL Hypochromasia PRESENT Sodium Level 143 mmol/L Potassium Level 3.7 mmol/L Chloride Level 110 mmol/L Carbon Dioxide Level 25 mmol/L Anion Gap 8.0 mmol/L Blood Urea Nitrogen 11 mg/dl Creatinine 1.20 mg/dl Est Creatinine Clear Calc Drug Dose 35.9 ml/min Estimated GFR () 49.4 Estimated GFR (Non- 42.7 BUN/Creatinine Ratio 9.6 Random Glucose 141 mg/dl Calcium Level 7.8 mg/dl Assessment and Plan 82 y/o female admitted to orthopedic service s/p L NIDHI by Dr. Lewis on 06/25. Hospitalist consulted for medical management s/p L NIDHI by Dr. Lewis on 06/25/2017 - Pain management, PT/OT, and DVT prophylaxis as per primary team - Follow postop CBC and PRP - Encourage incentive spirometer UTI- pansensitive E.coli:, Continue Keflex 500 mg BID, can be total 5-7 days HTN: Stable - Continue Coreg 3.125 mg BID w/ hold parameters, KCL supplement - Hold Lasix 40 mg daily pending postop labs/volume assessment tomorrow AM Angina: Stable, Continue Imdur 30 mg QAM Asthma: Stable Continue home inhalers Hypercholesterolemia: Table, Zocor 10 mg HS Hypothyroidism: Table, Synthroid 100 mcg daily GI prophylaxis: Protonix 40 mg daily DVT prophylaxis: ASA 81 mg BID Code Status: LEVEL I, FULL Dispo: As per primary team Continued [facility] stay due to: home environment unsafe for pt Discharge planning: uncertain
[2017-06-26 11:33] VITALS: BP 112/69; PULSE 68; TEMP 36.6; O2SAT 98
[2017-06-26 15:12] VITALS: BP 125/64; PULSE 69; TEMP 36.8; O2SAT 99
[2017-06-26] MEDS: SIMVASTATIN 10 MG TAB PO SCH (21:21)
[2017-06-26 21:24] VITALS: BP 133/85; PULSE 68; O2SAT 100
[2017-06-26 22:54] VITALS: BP 125/72; PULSE 67; TEMP 36.7; O2SAT 99
[2017-06-27] MEDS: LEVOTHYROXINE 100 MCG TAB PO SCH (05:32)
[2017-06-27] MEDS: ACETAMINOPHEN 500 MG TAB PO SCH ×3 (05:33→21:58)
[2017-06-27] MEDS: OXYCODONE HCL IR 5 MG TAB (IMMEDIATE RELEASE) PO PRN ×3 (05:38→18:33)
--- NOTE | 2017-06-27 06:15 | Orthopedic Progress Note ---
Orthopedic Progress Note Date of Service Jun 27, 2017. Subjective Post OP Day: 2 Reports: feeling well, pain controlled w PO medications, Denies: complaints, chest pain, SOB, nausea / vomiting, light headedness, calf pain Objective calves soft nontender, N/V intact, capillary refill less than 2 sec., dressing C /D/I (silverlon intact), A&O x3, toes mobile Date Time Temp Pulse Resp B/P (MAP) Pulse Ox O2 Delivery O2 Flow Rate FiO2 06/27/17 00:45 Room Air 06/26/17 22:54 36.7 67 16 125/72 (89) 99 Room Air 06/26/17 21:24 68 133/85 (101) 100 Room Air 06/26/17 15:15 Room Air 06/26/17 15:12 36.8 69 18 125/64 (84) 99 Nasal Cannula 06/26/17 11:33 36.6 68 16 112/69 (83) 98 Room Air 06/26/17 07:45 Room Air 06/26/17 06:58 36.6 71 16 137/71 (93) 96 Room Air Assessment & Plan Assessment: POD #2, Left NIDHI Plan: PT/ OT DVT proph- ASA D/C planning- Would like [facility], bed available on Thursday As per medicine will order H/H this am Discharge Planning Discharge Planning: senior care facility Pain Management: PO Tylenol, Oxy IR DVT Prophylaxis: ASA Therapy: Physical Therapy, Occupational Therapy
[2017-06-27 07:22] LABS: HEMATOCRIT 26.4 % (37-47)
[2017-06-27 07:27] VITALS: BP 128/75; PULSE 66; TEMP 36.4; O2SAT 98
[2017-06-27] MEDS: DOCUSATE SODIUM 100 MG CAP PO SCH ×2 (08:45→21:58)
[2017-06-27] MEDS: MONTELUKAST SOD 10 MG TAB PO SCH (08:46)
[2017-06-27] MEDS: MULTIVITAMIN TAB PO SCH (08:46)
[2017-06-27] MEDS: ISOSORBIDE MONONITRATE 30 MG TABCR PO SCH (08:46)
[2017-06-27] MEDS: PANTOprazole SOD 40 MG TAB PO SCH (08:46)
[2017-06-27] MEDS: POTASSIUM CHLORIDE 20 MEQ TABCR PO SCH (08:46)
[2017-06-27] MEDS: CARVEDILOL 3.125 MG TAB PO SCH ×2 (08:47→21:58)
[2017-06-27] MEDS: CEPHALEXIN MONOHYDRATE 500 MG CAP PO SCH ×2 (08:47→21:57)
[2017-06-27] MEDS: ASPIRIN 81 MG ECTAB PO SCH ×2 (08:47→21:58)
--- NOTE | 2017-06-27 10:49 | Progress Note ---
Subjective Date of Service: Jun 27, 2017. Subjective Pt evaluation today including: conversation w/ patient, physical exam, chart review, lab review, review of studies, conversation w/ marine consultant, review of inpatient medication list Pleasant, out of bed to chair, no dizziness, eating/voiding good, no complaint Review of Systems Constitutional: No fever, No chills, No sweats, No weight loss, No weakness, No fatigue, No problem reported Eyes: No worsening of vision, No eye pain, No redness, No discharge, No diplopia ENT: No hearing loss, No unusual epistaxis, No nasal symptoms, No sore throat, No tinnitus, No dental problems, No trouble swallowing Respiratory: No cough, No sputum, No wheezing, No shortness of breath, No dyspnea on exertion, No dyspnea at rest, No hemoptysis Cardiac: No chest pain, No orthopnea, No PND, No edema, No claudication, No palpitations Abdomen: No pain, No nausea, No vomiting, No diarrhea, No constipation Musculoskeletal: + joint pain (left hip pain well controlled), No muscle pain , No swelling, No calf pain Female : No dysuria, No urinary frequency, No hematuria, No incontinence, No abnormal vaginal bleeding, No vaginal discharge Neurologic: No memory loss, No paralysis, No weakness, No numbness/tingling, No vertigo, No balance problems Psychiatric: No depression symptoms, No anhedonism, No anxiety, No insomnia, No substance abuse Heme: No abnormal bleeding/bruising, No clotting problems, No swollen lymph nodes, No night sweats Endo: No fatigue, No excessive thirst, No excessive urination Skin: No rash, No itch, No new/changing skin lesions, No color change, No bleeding Objective Vital Signs Date Time Temp Pulse Resp B/P (MAP) Pulse Ox O2 Delivery O2 Flow Rate FiO2 06/27/17 07:27 36.4 66 16 128/75 (92) 98 Room Air 06/27/17 07:20 Room Air 06/27/17 00:45 Room Air 06/26/17 22:54 36.7 67 16 125/72 (89) 99 Room Air 06/26/17 21:24 68 133/85 (101) 100 Room Air 06/26/17 15:15 Room Air 06/26/17 15:12 36.8 69 18 125/64 (84) 99 Nasal Cannula 06/26/17 11:33 36.6 68 16 112/69 (83) 98 Room Air Physical Exam General Appearance: WD/WN, no apparent distress Eyes: normal inspection, PERRL, EOMI, sclerae normal ENT: normal ENT inspection, hearing grossly normal, pharynx normal Neck: supple, no adenopathy, thyroid normal, no JVD, no carotid bruits, trachea midline Respiratory/Chest: chest non-tender, normal breath sounds, no respiratory distress, no accessory muscle use, + decreased breath sounds Cardiovascular: regular rate, rhythm, no edema, no gallop, no JVD, no murmur Abdomen: normal bowel sounds, non tender, soft, no organomegaly, no pulsatile mass Extremities: no pedal edema, no calf tenderness, normal capillary refill, pelvis stable Neurologic/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 Lewis on 06/25. Hospitalist consulted for medical management s/p L NIDHI by Dr. Lewis on 06/25/2017, stable doing well - Pain management, PT/OT, and DVT prophylaxis as per primary team - Follow postop CBC and PRP - Encourage incentive spirometer UTI- pansensitive E.coli:, Stable , Continue Keflex 500 mg BID, can be total 5- 7 days HTN: Blood pressure was high and this morning at 154/107, now is improved to 128 /75 - Continue Coreg 3.125 mg BID w/ hold parameters, KCL supplement - Restart home dose of Lasix tomorrow morning Angina: Stable, Continue Imdur 30 mg QAM Asthma: Stable Continue home inhalers Hypercholesterolemia: Table, Zocor 10 mg HS Hypothyroidism: Table, Synthroid 100 mcg daily GI prophylaxis: Protonix 40 mg daily DVT prophylaxis: ASA 81 mg BID Code Status: LEVEL I, FULL Dispo: As per primary team Continued [facility] stay due to: home environment unsafe for pt Discharge planning: uncertain
[2017-06-27 15:14] VITALS: BP 124/77; PULSE 69; TEMP 36.8; O2SAT 96
[2017-06-27 19:26] VITALS: BP 117/63; PULSE 73; TEMP 36.8; O2SAT 96
[2017-06-27 21:53] VITALS: BP 123/73; PULSE 70
[2017-06-27] MEDS: SIMVASTATIN 10 MG TAB PO SCH (21:57)
[2017-06-27 22:49] VITALS: BP 124/80; PULSE 73; TEMP 36.6; O2SAT 99
[2017-06-28] MEDS: OXYCODONE HCL IR 5 MG TAB (IMMEDIATE RELEASE) PO PRN ×4 (02:24→21:01)
[2017-06-28] MEDS: ACETAMINOPHEN 500 MG TAB PO SCH ×3 (05:30→22:01)
[2017-06-28] MEDS: LEVOTHYROXINE 100 MCG TAB PO SCH (05:30)
[2017-06-28 06:03] VITALS: BP 130/83; PULSE 76; TEMP 36.9; O2SAT 96
--- NOTE | 2017-06-28 06:13 | Orthopedic Progress Note ---
Orthopedic Progress Note Date of Service Jun 28, 2017. Subjective Post OP Day: 3 Reports: feeling well, pain controlled w PO medications, Denies: complaints, chest pain, SOB, nausea / vomiting, light headedness, calf pain Objective calves soft nontender, N/V intact, capillary refill less than 2 sec., dressing C /D/I (silverlon intact), A&O x3, toes mobile Date Time Temp Pulse Resp B/P (MAP) Pulse Ox O2 Delivery O2 Flow Rate FiO2 06/28/17 00:15 Room Air 06/27/17 22:49 36.6 73 16 124/80 (95) 99 Room Air 06/27/17 21:53 70 123/73 (90) 06/27/17 19:26 36.8 73 18 117/63 (81) 96 Room Air 06/27/17 15:45 Room Air 06/27/17 15:14 36.8 69 16 124/77 (93) 96 Room Air 06/27/17 07:27 36.4 66 16 128/75 (92) 98 Room Air 06/27/17 07:20 Room Air Laboratory Results 24 Hours: Test 06/27/17 07:08 Hematocrit 26.4 % Hemoglobin 8.2 g/dL Assessment & Plan Assessment: POD #3, Left NIDHI VSS pain controlled Plan: PT/ OT DVT proph- ASA D/C planning- Would like [facility], bed available on Thursday As per medicine Discharge Planning Discharge Planning: [facility] facility Pain Management: PO Tylenol, Oxy IR DVT Prophylaxis: ASA Therapy: Physical Therapy, Occupational Therapy
[2017-06-28 07:12] VITALS: BP 123/61; PULSE 68; TEMP 36.6; O2SAT 100
[2017-06-28] MEDS: ASPIRIN 81 MG ECTAB PO SCH ×2 (08:54→20:55)
[2017-06-28] MEDS: CARVEDILOL 3.125 MG TAB PO SCH ×2 (08:55→20:56)
[2017-06-28] MEDS: DOCUSATE SODIUM 100 MG CAP PO SCH ×2 (08:55→20:55)
[2017-06-28] MEDS: ISOSORBIDE MONONITRATE 30 MG TABCR PO SCH (08:56)
[2017-06-28] MEDS: MULTIVITAMIN TAB PO SCH (08:56)
[2017-06-28] MEDS: CEPHALEXIN MONOHYDRATE 500 MG CAP PO SCH ×2 (08:56→20:55)
[2017-06-28] MEDS: PANTOprazole SOD 40 MG TAB PO SCH (08:56)
[2017-06-28] MEDS: FUROSEMIDE 40 MG TAB PO SCH (08:56)
[2017-06-28] MEDS: POTASSIUM CHLORIDE 20 MEQ TABCR PO SCH (08:56)
[2017-06-28] MEDS: MONTELUKAST SOD 10 MG TAB PO SCH (08:57)
--- NOTE | 2017-06-28 11:34 | Progress Note ---
Subjective Date of Service: Jun 28, 2017. Subjective Pt evaluation today including: conversation w/ patient, conversation w/ family , physical exam, chart review, lab review, review of studies, conversation w/ it infrastructure consultant, review of inpatient medication list Doing okay, no complaining, LAUREN drainage removed, denied dizziness or chest pain Review of Systems Constitutional: No fever, No chills, No sweats, No weight loss, No weakness, No fatigue, No problem reported Eyes: No worsening of vision, No eye pain, No redness, No discharge, No diplopia ENT: No hearing loss, No unusual epistaxis, No nasal symptoms, No sore throat, No tinnitus, No dental problems, No trouble swallowing Respiratory: No cough, No sputum, No wheezing, No shortness of breath, No dyspnea on exertion, No dyspnea at rest, No hemoptysis Cardiac: No chest pain, No orthopnea, No PND, No edema, No claudication, No palpitations Abdomen: No pain, No nausea, No vomiting, No diarrhea, No constipation Musculoskeletal: + joint pain (left hip pain, is well controlled), No muscle pain, No swelling, No calf pain Female : No dysuria, No urinary frequency, No hematuria, No incontinence, No abnormal vaginal bleeding, No vaginal discharge Neurologic: No memory loss, No paralysis, No weakness, No numbness/tingling, No vertigo, No balance problems Psychiatric: No depression symptoms, No anhedonism, No anxiety, No insomnia, No substance abuse Heme: No abnormal bleeding/bruising, No clotting problems, No swollen lymph nodes, No night sweats Endo: No fatigue, No excessive thirst, No excessive urination Skin: No rash, No itch, No new/changing skin lesions, No color change, No bleeding Objective Vital Signs Date Time Temp Pulse Resp B/P (MAP) Pulse Ox O2 Delivery O2 Flow Rate FiO2 06/28/17 08:00 Room Air 06/28/17 07:12 36.6 68 16 123/61 (81) 100 Room Air 06/28/17 06:03 36.9 76 16 130/83 (99) 96 Room Air 06/28/17 00:15 Room Air 06/27/17 22:49 36.6 73 16 124/80 (95) 99 Room Air 06/27/17 21:53 70 123/73 (90) 06/27/17 19:26 36.8 73 18 117/63 (81) 96 Room Air 06/27/17 15:45 Room Air 06/27/17 15:14 36.8 69 16 124/77 (93) 96 Room Air Physical Exam General Appearance: WD/WN, no apparent distress Eyes: normal inspection, PERRL, EOMI, sclerae normal ENT: normal ENT inspection, hearing grossly normal, pharynx normal Neck: supple, no adenopathy, thyroid normal, no JVD, no carotid bruits, trachea midline Respiratory/Chest: chest non-tender, normal breath sounds, no respiratory distress, no accessory muscle use, + decreased breath sounds Cardiovascular: regular rate, rhythm, no edema, no gallop, no JVD, no murmur Abdomen: normal bowel sounds, non tender, soft, no organomegaly, no pulsatile mass Extremities: normal range of motion, non-tender, normal inspection, no pedal edema, no calf tenderness, normal capillary refill, pelvis stable 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 Lewis on 06/25. Hospitalist consulted for medical management s/p L NIDHI by Dr. Lewis on 06/25/2017, stable doing well - Pain management, PT/OT, and DVT prophylaxis as per primary team - Follow postop CBC and PRP - Encourage incentive spirometer UTI- pansensitive E.coli:, Stable , Continue Keflex 500 mg BID, can be total 5- 7 days HTN: Blood pressure was high , stable and improved - Continue Coreg 3.125 mg BID w/ hold parameters, KCL supplement - Restart home dose of Lasix today Acute blood loss anemia, hemoglobin 8.2 from 8.5, denied dizziness, continue iron pill and Colace, History of Angina: Stable, Continue Imdur 30 mg QAM Asthma: Stable Continue home inhalers Hypercholesterolemia: Table, Zocor 10 mg HS Hypothyroidism: Table, Synthroid 100 mcg daily GI prophylaxis: Protonix 40 mg daily DVT prophylaxis: ASA 81 mg BID Code Status: LEVEL I, FULL Dispo: As per primary team Continued [facility] stay due to: home environment unsafe for pt Discharge planning: uncertain
[2017-06-28 15:05] VITALS: BP 120/70; PULSE 74; TEMP 36.3; O2SAT 99
[2017-06-28] MEDS: SIMVASTATIN 10 MG TAB PO SCH (20:55)
[2017-06-28 22:47] VITALS: BP 132/80; PULSE 74; TEMP 36.8; O2SAT 98
[2017-06-29] MEDS: LEVOTHYROXINE 100 MCG TAB PO SCH (05:38)
[2017-06-29] MEDS: ACETAMINOPHEN 500 MG TAB PO SCH (05:38)
[2017-06-29 06:56] VITALS: BP 122/72; PULSE 65; TEMP 36.6; O2SAT 100
--- NOTE | 2017-06-29 07:14 | Orthopedic Progress Note ---
Orthopedic Progress Note Date of Service Jun 29, 2017. Subjective Post OP Day: 4 Reports: feeling well, pain controlled w PO medications, Denies: complaints, chest pain, SOB, nausea / vomiting, light headedness, calf pain Objective calves soft nontender, N/V intact, capillary refill less than 2 sec., dressing C /D/I, A&O x3, toes mobile Silverlon in tact. Date Time Temp Pulse Resp B/P (MAP) Pulse Ox O2 Delivery O2 Flow Rate FiO2 06/29/17 06:56 36.6 65 19 122/72 (89) 100 Room Air 06/28/17 23:30 Room Air 06/28/17 22:47 36.8 74 16 132/80 (97) 98 Room Air 06/28/17 15:30 Room Air 06/28/17 15:05 36.3 74 18 120/70 (87) 99 Room Air 06/28/17 08:00 Room Air Assessment & Plan Assessment: POD #4, Left NIDHI VSS pain controlled Plan: PT/ OT DVT proph- ASA D/C planning- Would like [facility], bed available on today. As per medicine Inhouse Planning Pain Management: Ultram, Morphine, PO Tylenol, Oxy IR DVT Prophylaxis: TEDs, SCDs, ASA Discharge Planning Discharge Planning: care home facility Pain Management: PO Tylenol, Oxy IR DVT Prophylaxis: ASA Therapy: Physical Therapy, Occupational Therapy
[2017-06-29] MEDS ORDERED: LEVO100T7 PO (07:20)
[2017-06-29] MEDS ORDERED: IMDSR30 PO (07:20)
[2017-06-29] MEDS ORDERED: SIMV10TA2 PO (07:20)
[2017-06-29] MEDS ORDERED: LSX/40 PO (07:20)
[2017-06-29] MEDS ORDERED: POTA20TA16 PO (07:20)
[2017-06-29] MEDS ORDERED: NXM/40 PO (07:20)
[2017-06-29] MEDS ORDERED: MONT1TAB3 PO (07:20)
[2017-06-29] MEDS ORDERED: KFL500 PO (07:20)
[2017-06-29] MEDS ORDERED: ALBUAER INH (07:20)
[2017-06-29] MEDS ORDERED: MULT-890 PO (07:20)
[2017-06-29] MEDS ORDERED: PRLSR20 PO (07:20)
[2017-06-29] MEDS ORDERED: NTRGSL/4 UT (07:20)
[2017-06-29] MEDS ORDERED: CARV3.12 PO (07:20)
[2017-06-29] MEDS ORDERED: FERR1TAB13 PO (07:20)
[2017-06-29] MEDS ORDERED: RXC5 PO (07:20)
[2017-06-29] MEDS ORDERED: ASPEC81 PO (07:20)
--- NOTE | 2017-06-29 07:22 | Discharge Instructions ---
Discharge Instructions Date of Service Jun 29, 2017. Admission Reason for Admission: Left Hip Degenerative Joint Disease Discharge Discharge Diagnosis / Problem: Left NIDHI Discharge Goals Goal(s): Improve function Activity Recommendations Activity Level: Assistance Required . Additional Information Patient informed of condition: Yes Advance Directives: Yes DNR: No Level of Care: Skilled Communicable Disease: No Prognosis: Improving Ryan Catheter: No Instructions / Follow-Up Instructions / Follow-Up ACTIVITY RECOMMENDATIONS: SELF CARE INSTRUCTIONS AFTER TOTAL HIP REPLACEMENT Until the incision and soft tissues around your hip have healed, there is a possibility that the hip prosthesis could dislocate. A. Observe the following precautions to prevent dislocation: 1. Don't bend your hip greater than 90 degrees. 2. Avoid crossing your legs or ankles while standing or lying. 3. Sit with your feet placed 6 inches apart. 4. When sitting, keep your knees below your hips. Sit on a firm surface, avoid deep, soft chairs and couches. Use an elevated toilet seat in the bathroom. 5. Don't bend over at the waist. Use a long handled shoehorn and a sock aid to help you put on your shoes and socks. A food service attendant can help you fiber picker objects that are too high or too low to reach. 6. Keep car riding to a minimum for at least one month after surgery. B. Your balance may be shaky for a while. Use crutches or a walker until directed by your doctor. C. Use hand rails when walking on stairs. D. Wear low heeled shoes with non-slip soles. E. Be sure that your floors are free of things that could trip you - throw rugs , electrical cords, small objects. Avoid wet and waxed floors, especially with crutches and canes. F. Try to walk several times a day with rest periods between. G. Continue with all the exercises taught to you in the hospital. Again, make walking a part of your daily routine. SPECIAL CARE INSTRUCTIONS: VERY IMPORTANT TO READ AND REVIEW A. You may still be at risk for phlebitis and blood clots. 1. Wear surgical stockings (AN hose) for 2 weeks after surgery to improve circulation and reduce swelling. 2. Take Aspirin 81mg twice daily for 4 weeks or as directed by your doctor. This is your blood thinner. 3. High risk patients may be prescribed a stronger blood thinner if necessary. 4. If you are on Coumadin normally, your family doctor/wildlife refuge specialist should monitor your blood work. Expect a phone call the day of or the day after bloodwork is drawn to adjust your dosage. B. You must take antibiotics before having dental work, bladder, bowel and other surgery. Your doctor will provide you with a permanent card to carry describing precautions. C. Call [facility] if you have a fever, redness or swelling around the incision, cloudy drainage from incision, or sudden increase in pain in your hip, not relieved by your regular pain medication. D. Please call the office at if you have any concerns or questions about your operation or recovery. * YOU MAY SHOWER, NO TUB BATHS UNTIL CLEARED BY YOUR DOCTOR. * WEAR AN HOSE 20 HOURS PER DAY FOR 2 WEEKS. * YOU SHOULD USE A WALKER OR CRUTCHES FOR 2-4 WEEKS. THIS WILL HELP PREVENT STRAIN ON YOUR HIP MUSCLE AND ALLOW IT TO HEAL PROPERLY. YOU MAY WEAN TO A CANE TOLERATED. * MOST PATIENTS WILL HAVE HOME NURSING FOR THERAPY. IF YOU DECIDE TO DO OUTPATIENT PHYSICAL THERAPY, PLEASE SCHEDULE THIS 3 TIMES PER WEEK. * YOU MAY HAVE A LARGE, BAND-JOSE LIKE DRESSING (SILVERON). THIS WILL REMAIN ON YOUR INCISION FOR 7 DAYS, THEN CAN BE REMOVED. IF INCISION IS LEAKING THROUGH DRESSING, PLEASE CALL THE OFFICE . FOLLOW UP VISIT: If appointment is not already scheduled: Please call [facility] to make a follow-up appointment for 2 weeks after your surgery at . Current Hospital Diet Patient's current hospital diet: Regular Diet Discharge Diet Recommended Diet: Regular Diet Procedures Procedures Performed: LEFT TOTAL HIP ARTHROPLASTY -UNCEMENTED Pending Studies Studies pending at discharge: no Laboratory Results Hemoglobin A1c Test 06/22/17 13:30 Range/Units Estimated Average Glucose 123 mg/dl Hemoglobin A1c 5.9 H 4.5-5.6 % Medical Emergencies . Who to Call and When: Medical Emergencies: If at any time you feel your situation is an emergency, please call 911 immediately. . Non-Emergent Contact Non-Emergency issues call your: Primary Care Provider . . "Provider Documentation" section prepared by Murray Manzano. . Core Measure Problem Core Measures: VTE VTE Core Measures Date of VTE Diagnosis: Jun 29, 2017 Time of VTE Diagnosis: 07:22 Reason no anticoag overlap I/P: Treatment provided - N/A Reason no anticoag overlap @DC: Treatment provided - N/A [place] Drug Monitoring Program Search Results: patient reviewed within database, no issues identified
[2017-06-29] MEDS: DOCUSATE SODIUM 100 MG CAP PO SCH (08:40)
[2017-06-29] MEDS: ISOSORBIDE MONONITRATE 30 MG TABCR PO SCH (08:41)
[2017-06-29] MEDS: CARVEDILOL 3.125 MG TAB PO SCH (08:41)
[2017-06-29] MEDS: ASPIRIN 81 MG ECTAB PO SCH (08:41)
[2017-06-29] MEDS: MULTIVITAMIN TAB PO SCH (08:42)
[2017-06-29] MEDS: CEPHALEXIN MONOHYDRATE 500 MG CAP PO SCH (08:42)
[2017-06-29] MEDS: PANTOprazole SOD 40 MG TAB PO SCH (08:42)
[2017-06-29] MEDS: POTASSIUM CHLORIDE 20 MEQ TABCR PO SCH (08:42)
[2017-06-29] MEDS: FUROSEMIDE 40 MG TAB PO SCH (08:42)
[2017-06-29] MEDS: MONTELUKAST SOD 10 MG TAB PO SCH (08:43)
[2017-06-29 09:18] VITALS: BP 122/72; PULSE 65; TEMP 36.6; O2SAT 100
[2017-06-29] MEDS: OXYCODONE HCL IR 5 MG TAB (IMMEDIATE RELEASE) PO PRN (11:35)
== END 2017-06-29 12:07 | DRG 470 ==
LOC: C.ACU 04:59 → C.3E 07:00 → ENRESERV 10:02 → UNDODISIN 06-26 10:43
PROVIDERS: ADMIT Orthopaedic Surgery Sports Medicine; ATTEND Orthopaedic Surgery Sports Medicine
PROC: 0SRB04A Replacement of Left Hip Joint with Ceramic on Polyethylene Synthetic Substitute, Uncemented, Open Approach (ICD-10-PCS; principal; 2017-06-25 07:15)
DX: M16.12 Unilateral primary osteoarthritis, left hip (principal); D62 Acute posthemorrhagic anemia; N39.0 Urinary tract infection, site not specified; B96.20 Unspecified Escherichia coli [E. coli] as the cause of diseases classified elsewhere; E03.9 Hypothyroidism, unspecified; E78.00 Pure hypercholesterolemia, unspecified; J45.909 Unspecified asthma, uncomplicated; K21.9 Gastro-esophageal reflux disease without esophagitis; I25.119 Atherosclerotic heart disease of native coronary artery with unspecified angina pectoris; I11.9 Hypertensive heart disease without heart failure; E66.9 Obesity, unspecified; Z79.899 Other long term (current) drug therapy; Z79.82 Long term (current) use of aspirin; Z96.641 Presence of right artificial hip joint; Z68.33 Body mass index [BMI] 33.0-33.9, adult; Z82.49 Family history of ischemic heart disease and other diseases of the circulatory system